=== PATIENT | female | born 1960 | race Caucasian/White ===

== ENCOUNTER 2018-09-26 14:53 | Emergency (ER) | payer BC ==
[~2018-09-26] VITALS: Ht 162.6 cm; Wt 63.2 kg
[2018-09-26] MEDS ORDERED: FLUTICASONE PROPIONATE 50 MCG/SPRAY 16 GM NASAL SPRAY NASAL ONE (17:00)
[2018-09-26] MEDS ORDERED: BENZONATATE 100 MG CAPSULE PO ONE (17:00)
[2018-09-26 17:56] LABS: RAPID GROUP A STREP NEGATIVE (NEGATIVE)
[2018-09-26 18:14] LABS: INFLUENZA TYPE B NEGATIVE FOR TYPE B (NEGATIVE)
[2018-09-26 18:18] LABS: INFLUENZA TYPE A POSITIVE FOR TYPE A (NEGATIVE)
[2018-09-26 18:41] VITALS: BP 147/81
== END 2018-09-26 18:44 | disposition home or self-care (01) ==
LOC: EMS 14:53
DX: J10.1 Influenza due to other identified influenza virus with other respiratory manifestations (principal); Z88.5 Allergy status to narcotic agent; Z90.710 Acquired absence of both cervix and uterus; Z85.828 Personal history of other malignant neoplasm of skin; Z85.89 Personal history of malignant neoplasm of other organs and systems
CPT/HCPCS: 87430; 87804